=== PATIENT | male | born 1975 | race Caucasian/White ===

== ENCOUNTER 2016-05-28 23:20 | Inpatient (IN) | payer OTHER ==
--- NOTE | ~2016-05-28 | HP ---
Unit #: [id number] #: [id number] Patient: LUIS BHAKTA [id number] [place] [address] [id number] I MR#: [id number] NAME: LUIS BHAKTA ROOM: P252 Age: 40 Sex: M Admission Date: 05/28/2016 : 1975 Attending Physician: Yuliya Linton M.D. Admitting Physician: Yuliya Linton M.D. Primary Care Physician: Saúl Alarcon M.D. HISTORY AND PHYSICAL HISTORY OF PRESENT ILLNESS Luis is a 40 year old admitted to [address] [place] [address] with psychotic behavior and because of his polysubstance abuse. He is a poor historian so his history is taken from his chart. PAST MEDICAL HISTORY Long history of illicit substance abuse. PAST SURGICAL HISTORY Nothing reported. ALLERGIES No known drug allergies. SOCIAL HISTORY Smokes two packs per day. Drinks alcohol on occasion and has a history of polysubstance abuse most recently benzodiazepines. FAMILY HISTORY Medically noncontributory. REVIEW OF SYSTEMS CONSTITUTIONAL: No fever or chills. HEENT: Denies any sore throat, ear pain or runny nose. CARDIOVASCULAR: Denies chest pain, irregular heart rhythm or palpitations. CHEST: Denies shortness of breath or cough. No hemoptysis. GASTROINTESTINAL: Denies nausea, vomiting, diarrhea or chronic constipation. ENDOCRINE: Denies history of increased thirst or urination. No recent significant weight loss or gain. GENITOURINARY: Denies dysuria, frequency, or hematuria. SKIN: Denies any rashes. HEMATOLOGIC: Denies history of increased bleeding or bruising. MUSCULOSKELETAL: Denies any hot, swollen joints. No generalized muscle pain. NEUROLOGIC: Denies problems with vision or speech. No frequent, severe headaches. No numbness, tingling or weakness in any extremities. Denies loss of bladder or bowel control. CURRENT MEDICATIONS 1. Seroquel 100 mg q.h.s. 2. Nicotine patch 21 mg q day Unit #: [id number] #: [id number] Patient: LUIS BHAKTA 3. Neurontin 400 mg q.i.d. 4. Effexor XR 150 mg q day 5. Depakote 500 mg b.i.d. 6. Milk of Magnesia p.r.n. 7. Maalox p.r.n. 8. Tylenol p.r.n. PHYSICAL EXAMINATION GENERAL: Alert, well-nourished, in no apparent distress. VITAL SIGNS: Blood pressure 110/68, heart rate 80, respirations 16, temperature 98.6. WEIGHT: 160 pounds. HEIGHT: 5'10". SKIN: Warm and dry without rash or lesion. HEENT: Normocephalic. TMs not viewed. Oral and nasal passages clear. Conjunctivae clear. Pupils equal, round and reactive to light and accommodation. Extraocular movements intact. NECK: Supple without lymphadenopathy or thyromegaly. HEART: Regular rate and rhythm without murmur. LUNGS: Clear. ABDOMEN: Soft, nontender. : Not done. EXTREMITIES: No evidence of cyanosis, clubbing or edema. Moves all extremities without focal deficit. NEUROLOGICAL: Unable to complete extended exam. He does move all extremities without focal deficit. Hand php mysql web developer is equal and gait is normal. IMPRESSION Psychiatric admission. RECOMMENDATIONS PSYCHIATRIC: Per psychiatrist. MEDICAL: I see no contraindications to participating in facility's activities. MEDICAL PROGNOSIS Good. MEDICAL CONDITION Stable. Dictated by... Raciel VillegasAMoisés. for Ilana Mcbride/amanda TD: 05/29/2016 20:45 JOB #: [id number] Unit #: [id number] #: [id number] Patient: LUIS BHATKA HISTORY AND PHYSICAL Page 1 of 1 X Fatimah Jolley X HISTORY AND PHYSICAL
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
--- NOTE | ~2016-05-28 | PN ---
Unit #: [id number] #: [id number] Patient: GILLIAN BHAKTA [id number] [facility] [address] [place] [address] [id number] MR#: [id number] NAME: GILLIAN BHAKTA ROOM: P258 Age: 40 Sex: M Admission Date: 05/28/2016 : 1975 Attending Physician: Yuliya Linton M.D. Admitting Physician: Yuliya Linton M.D. Primary Care Physician: Saúl Alarcon M.D. [facility] PROGRESS NOTES DATE 05/30/2016 DISCUSSION Mr. Bhakta is a 40-year-old, white male who was seen today and chart was reviewed and case was discussed with the staff. He was sitting in bed and was rather agitated and once again asking for [place] and I confronted him about why he would want that medication as get anything with his medical records. However, he has history of substance abuse and was trying to mask and minimize it but then later did admit that he had problems with drug and he has been to drug rehab in the past but that now he does not have any problems therefore his primary care physician has been prescribing him that his psychiatrist and primary physician knows that he has a history of substance abuse and they are giving him they have no problem with that and why do I have a problem with that and what am I going to do about it and was seen to be rather confrontational and I tried to educate him and I am not sure if he was willing to understand too much about his addictive potential and his obsession about [place], not to mention that he did not appear to be in any acute distress or discomfort. Meanwhile, he reports that his hallucinations are getting better. MENTAL STATUS EXAM Young white male who was casually dressed with fair personal hygiene, appears to be in no acute distress or discomfort. He was awake and alert on interaction with intact orientation. His mood was anxious with congruent affect. His speech was slow and restricted in content. flight of ideas. His insight and judgement remains significantly impaired. TREATMENT PLAN 1. We will continue him on his current medications and treatment protocol. We will monitor his response to the medication and make further adjustments as needed. 2. We will continue to follow up. Dictated by... Yuliya Linton M.D. Unit #: [id number] #: [id number] Patient: GILLIAN BHAKTA CLEMENTINA/amanda TD: 05/30/2016 23:04 JOB #: [id number] [facility] PROGRESS NOTES Page 1 of 1 X Yuliya Linton MD X PROGRESS NOTE
--- NOTE | ~2016-05-28 | DS ---
Unit #: [id number] #: [id number] Patient: GILLIAN BHAKTA [id number] [place] [address] [id number] MR#: [id number] NAME: GILLIAN BHAKTA ROOM: P258 Age: 40 Sex: M Admission Date: 05/28/2016 : 1975 Discharge Date: 05/31/2016 Attending Physician: Yuliya Linton M.D. Primary Care Physician: Saúl Alarcon M.D. DISCHARGE SUMMARY IDENTIFYING DATA Mr. Bhakta is a 40-year-old white male, who is a resident of [place], [place] and was brought to the hospital by his . DISCHARGE DIAGNOSES Psychiatric: Bipolar disorder, most recent episode depressed, recurrent, moderate, with psychosis. Medical: None. Stressors: Moderate psychosocial stressors. HISTORY OF PRESENT ILLNESS Please see initial psychiatric evaluation for details. PAST PSYCHIATRIC HISTORY Please see initial psychiatric evaluation for details. PAST MEDICAL HISTORY Please see initial psychiatric evaluation for details. HOSPITAL COURSE The patient was admitted to the adult psychiatric unit at [facility] and was oriented to the hospital environment. Routine p.r.n. medications were initiated, and he was started back on his home medications and Depakote and Effexor were maintained and Seroquel was increased to 100 mg as he was taking a low therapeutic dose and he is having some persistent psychosis. He was seen to be rather anxious, withdrawn; though, he was taking the medications regularly and was tolerating them fairly well and was able to show a decent and therapeutic response with improvement in depression and psychosis, and was willing to continue treatment on an outpatient basis and as such, it was decided that he will be discharged home and will continue treatment on an outpatient basis. DISCHARGE MEDICATIONS Depakote 500 mg b.i.d. for bipolar, Effexor XR 150 mg in the morning for depression, Seroquel 100 mg at bedtime for psychosis. DISCHARGE CONDITION Stable. PROGNOSIS Fair. Unit #: [id number] #: [id number] Patient: GILLIAN BHAKTA Dictated by... Yuliya Linton M.D. IAA/modl TD: 05/31/2016 08:33 JOB #: [id number] DISCHARGE SUMMARY Page 1 of 1 X Yuliya Linton MD DISCHARGE SUMMARY
[~2016-05-28 23:20] MED LIST: ALPRAZOLAM PO; NEURONTIN PO; VICODIN PO
[2016-05-29 09:35] LABS: BASOPHIL# 0.1 X10e3 (0-0.3); BASOPHIL% 0.8 % (0-2.5); EOSINOPHIL# 0.2 X10e3 (0-0.7); EOSINOPHIL% 3.2 % (0.0-7.0); HEMATOCRIT 44.6 % (38.0-50.0); HEMOGLOBIN 15.3 gm/dL (13.0-16.0); LYMPHOCYTE# 3.4 X10e3 (1.0-3.5); LYMPHOCYTE% 47.7 % (17.0-45.0); MEAN CELL VOLUME 89.9 FL (83-96); MEAN CORPUSCULAR HEMOGLOBIN 30.9 PG (28-34); MEAN CORPUSCULAR HGB CONC 34.4 g/dL (30-36); MEAN PLATELET VOLUME 8.6 FL (6.5-11.5); MONOCYTE# 0.5 X10e3 (0-1.0); MONOCYTE% 7.3 % (3.0-12.0); NEUTROPHIL# 2.9 X10e3 (1.5-7.1); PLATELET COUNT 196 X10e3 (140-420); RED BLOOD COUNT 4.96 X10e (3.90-5.60); RED CELL DISTRIBUTION WIDTH 12.8 % (11.0-15.5); WHITE BLOOD COUNT 7.2 X10e3 (4.0-10.5)
[2016-05-29 09:37] LABS: DIFF IND NO
[2016-05-29 09:43] LABS: URINE APPEARANCE CLEAR; URINE BILIRUBIN NEG (NEG); URINE BLOOD NEG (NEG); URINE COLOR YELLOW; URINE GLUCOSE NEG (NEG); URINE KETONE NEG (NEG); URINE LEUKOCYTE ESTERASE NEG (NEG); URINE NITRATE NEG (NEG); URINE PH 5.5 (5-8); URINE PROTEIN NEG (NEG); URINE SPECIFIC GRAVITY 1.009 (1.003-1.035); URINE UROBILINOGEN 0.2 MG/DL (NEG)
[2016-05-29 09:51] LABS: THYROID STIMULATING HORMONE 1.39 uIU/ml (0.34-5.60)
[2016-05-29 09:54] LABS: ALBUMIN SERUM 4.2 g/dL (3.5-5.0); BILIRUBIN,TOTAL 0.5 mg/dL (0.2-2.0); BUN/CREATININE RATIO 15.71; CALCIUM SERUM 9.8 mg/dL (8.4-10.2); CREATININE SERUM 0.7 mg/dL (0.6-1.4); GLOM FILT RATE Estimated 119.8 mL/min (>60); POTASSIUM 4.7 mmol/L (3.5-5.1); PROTEIN TOTAL SERUM 6.6 g/dL (6.0-8.3)
[2016-05-29 09:57] LABS: FREE THYROXIN (T4) 0.83 ng/dL (0.58-1.64)
[2016-05-29 10:12] LABS: AMPHETAMINE NEG (NEG); BARBITURATES NEG (NEG); BENZODIAZEPINES NEG (NEG); COCAINE NEG (NEG); MARIJUANA POS (NEG); OPIATES POS (NEG); TRICYCLIC ANTIDEPRESSANTS NEG (NEG); U METHADONE NEG (NEG)
== END 2016-05-31 11:15 | disposition home or self-care (01) | DRG 885 ==
LOC: P2L 23:20
PROVIDERS: Psychiatry & Neurology Psychiatry
DX: F31.32 Bipolar disorder, current episode depressed, moderate (principal); F29 Unspecified psychosis not due to a substance or known physiological condition; F17.210 Nicotine dependence, cigarettes, uncomplicated
CPT/HCPCS: 80053; 80164; 80307; 81003; 82140; 84439; 84443; 85025

== ENCOUNTER 2016-09-25 16:33 | Emergency (ER) | payer OTHER ==
[~2016-09-25] VITALS: Ht 177.8 cm; Wt 70.3 kg
[2016-09-25 17:04] LABS: BASOPHIL# 0.1 X10e3 (0-0.3); EOSINOPHIL# 0.2 X10e3 (0-0.7); EOSINOPHIL% 3.3 % (0.0-7.0); HEMATOCRIT 41.4 % (38.0-50.0); HEMOGLOBIN 14.5 gm/dL (13.0-16.0); LYMPHOCYTE# 2.9 X10e3 (1.0-3.5); MEAN CELL VOLUME 90.6 FL (83-96); MEAN CORPUSCULAR HEMOGLOBIN 31.7 PG (28-34); MEAN PLATELET VOLUME 7.7 FL (6.5-11.5); MONOCYTE# 0.3 X10e3 (0-1.0); MONOCYTE% 5.1 % (3.0-12.0); NEUTROPHIL# 2.9 X10e3 (1.5-7.1); NEUTROPHIL% 45.6 % (40-75); PLATELET COUNT 208 X10e3 (140-420); RED BLOOD COUNT 4.57 X10e (3.90-5.60); RED CELL DISTRIBUTION WIDTH 12.8 % (11.0-15.5); WHITE BLOOD COUNT 6.4 X10e3 (4.0-10.5)
[2016-09-25 17:06] LABS: DIFF IND NO
[2016-09-25 17:17] LABS: INR 0.9
[2016-09-25 17:29] LABS: ALBUMIN SERUM 4.3 g/dL (3.5-5.0); BILIRUBIN, DIRECT 0.1 mg/dL (0.0-0.2); BILIRUBIN,INDIRECT 0.3 mg/dL (0.0-0.9); BILIRUBIN,TOTAL 0.4 mg/dL (0.2-2.0); CALCIUM SERUM 9.1 mg/dL (8.4-10.2); CREATININE SERUM 0.9 mg/dL (0.6-1.4); GLOM FILT RATE Estimated 107.2 mL/min (>60); PROTEIN TOTAL SERUM 6.9 g/dL (6.0-8.3)
== END 2016-09-25 19:55 | disposition left against medical advice (07) ==
LOC: CFTX 16:33 → CED 16:33 → CFTX 16:45
DX: Z53.21 Procedure and treatment not carried out due to patient leaving prior to being seen by health care provider (principal)
CPT/HCPCS: 80048; 80076; 83690; 85025; 85610; 85730